=== PATIENT | male | born 1960 ===

== ENCOUNTER 2022-11-19 08:48 | Emergency (ER) | payer OTHER ==
[2022-11-19 10:49] VITALS: PULSE 57
[2022-11-19 10:49] LABS: CARBON DIOXIDE,CO2 27.1 mmol/L (21.0-32.0)
[2022-11-19 11:42] VITALS: BP 153/94
== END 2022-11-19 11:37 | disposition home or self-care (01) ==
LOC: MW.ED 08:48
DX: R07.89 Other chest pain (principal); I48.91 Unspecified atrial fibrillation; I10 Essential (primary) hypertension; Z88.5 Allergy status to narcotic agent
CPT/HCPCS: 36415; 71045; 71045-26; 80048; 84484; 85025; 93005; 93010; 99283; 99285